=== PATIENT | male | born 2005 | race African-American/Black ===

== ENCOUNTER 2024-10-11 02:46 | Emergency (ER) | payer BC, SELFPAY ==
[2024-10-11 02:51] VITALS: BP 133/72; PULSE 92; RESP 16; TEMP 36.7; O2SAT 100
--- NOTE | 2024-10-11 03:15 | ED.NAVMDI ---
HPI - Nausea/Vomiting/Diarrhea General Chief complaint: Nausea/Vomiting/Diarrhea Stated complaint: i think i have food poisoning Time Seen by Provider: 10/11/24 03:12 Source: patient Mode of arrival: ambulatory Limitations: no limitations History of Present Illness HPI Narrative: Patient presents with concern for food poisoning. He had chicken wings earlier in the day and then developed nausea, vomiting, and diarrhea. He states he feels dehydrated. He is having cramping in his abdomen but also reporting that this is everywhere including his back. Vomiting appears to have let up as his last episode was reported at 11:00 p.m.. He states all episodes have been nonbloody and nonbilious. He reports this body feels sore and tight this is having have trouble sleeping. Lives in a dorm but denies any sick contacts/roommates and no one else that he knows ate the same food. No recent travel or antibiotics. Denies fevers but having chills. No prior abdominal surgeries. No underlying GI issues and has never had to see or follow with a marine pipefitter. Related Data Allergies Allergy/AdvReac Type Severity Reaction Status Date / Time No Known Allergies Allergy Verified 10/11/24 02[facility] Social History Social History Living arrangements: dorm student housing Occupation/Education: student Exam Narrative: GENERAL: Well-appearing, well-nourished, and in no acute distress. HEAD: Normocephalic, atraumatic. EYES: Non injected, non icteric ENT: Nares clear, no rhinorrhea or epistaxis. Moist mucous membranes NECK: Supple. CHEST: Speaking in full sentences. No respiratory distress. HEART: Regular rate and rhythm. . ABDOMEN: Soft, nondistended. Well developed abdomional muscles. No tenderness palpation throughout. No rigidity or guarding. Not peritoneal. EXTREMITIES: Normal range of motion. No lower extremity edema. SKIN: Warm, dry, no rash. NEURO: No focal deficits. Alert and oriented x3. PSYCH: Normal mood and affect. Course Vital Signs Vital signs: Vital Signs Temperature 98.1 F 10/11/24 02:51 Pulse Rate 92 10/11/24 02:51 Respiratory Rate 16 10/11/24 02:51 Blood Pressure 133/72 10/11/24 02:51 Pulse Oximetry 100 10/11/24 02:51 Oxygen Delivery Room Air 10/11/24 02:51 Temperature 98.1 F 10/11/24 02:51 Pulse Rate 92 10/11/24 02:51 Respiratory Rate 16 10/11/24 02:51 Blood Pressure 133/72 10/11/24 02:51 Pulse Oximetry 100 10/11/24 02:51 Oxygen Delivery Room Air 10/11/24 02:51 MDM - Nausea/Vomiting/Diarrhea MDM Narrative Medical decision making narrative: Patient presents with concern for food poisoning. He developed nausea, vomiting, and diarrhea after having chicken wings earlier in the day. He states he feels dehydrated and is cramping everywhere with myalgias and feeling that his body is tight and this is making it difficult to breathe. Last episode of emesis what it was at approximately 11:00 p.m. In the emergency department they are afebrile with vital signs within normal limits. Mild leukocytosis. Mildly elevated CPK but not to a degree to suggest rhabdomyolysis. Will attempt a fluid challenge. Mild hypomagnesemia; oral repletion ordered. Only trace ketonuria. Viral swab negative. Patient reassessed and states he is feeling better in general as he has not thrown up anymore and no longer feels nauseated. He does still have body aches, requesting something for pain and this is ordered. Otherwise feels comfortable with and ready to be discharged. Provided prescriptions for [id number] analgesics medications as well as short course of ODT ondansetron. Provided referral/contact information for primary care physician if patient does not have 1. Provided work/school note. Discharged home in stable condition. Differential Diagnosis Differential diagnosis: Likely food poisoning, gastroenteritis, drug-induced nausea and vomiting, dehydration and other (Acute viral syndrome) Lab Data Attestation: I reviewed the patient's lab results. 10/11/24 03:41 10/11/24 03:41 Labs: Lab Results 10/11/24 10/11/24 Range/Units 03:41 05:34 WBC 11.1 H (4.5-10.0) K/mm3 RBC 5.94 (4.6-6.20) M/mm3 Hgb 17.5 (14.0-18.0) g/dL Hct 52.1 H (42.0-52.0) % MCV 87.7 (80-100) fl MCH 29.5 (26-34) pg MCHC 33.6 (32-36) g/dl RDW 13.1 (11.5-14.5) % Plt Count 263 (150-375) k/mm3 MPV 9.4 (7.4-10.4) fl Immature Gran % (Auto) 0.4 (0-0.5) % Neut % (Auto) 92.0 H (45.5-73.1) % Lymph % (Auto) 3.7 L (18.3-44.2) % [place] % (Auto) 3.6 (2.6-8.5) % Eos % (Auto) 0.1 (0-4.4) % Baso % (Auto) 0.2 (0.2-1.2) % Lymph # (Auto) 0.41 L (0.9-3.2) K/mm3 [place] # (Auto) 0.4 (0.1-0.6) K/mm3 Eos # (Auto) 0.0 (0-0.3) K/mm3 Baso # (Auto) 0.0 (0.0-0.1) K/mm3 Abs Immat Gran (auto) 0.04 H (0.00-0.031) K/mm3 Absolute Neuts (auto) 10.2 H (1.3-6.7) K/mm3 Absolute Nucleated RBC 0.000 (0.0-0.012) K/mm3 Nucleated RBC % 0.0 (0.0-0.2) % Sodium 142 (137-145) mmol/L Potassium 3.9 (3.4-5.0) mmol/L Chloride 102 (98-107) mmol/L Carbon Dioxide 26 (22-30) mmol/L Anion Gap 14 H (4-12) mmol/L BUN 17 (9-20) mg/dL Creatinine 1.21 (0.7-1.3) mg/dL Estim Creat Clear Calc 93 ml/min Estimated GFR > 60 (59 - ) Glucose 114 H (65-110) mg/dL Calcium 9.5 (8.4-10.2) mg/dL Magnesium 1.5 L (1.6-2.3) mg/dL Total Bilirubin 1.5 H (0.2-1.3) mg/dL AST 47 (17-59) U/L ALT 48 (6-50) U/L Alkaline Phosphatase 87 (38-126) U/L Total Creatine Kinase 505 H (55-170) U/L Total Protein 8.0 (6.3-8.2) g/dL Albumin 5.1 (3.5-5.1) g/dL Lipase 58 (23-300) U/L Urine Color Yellow (Yellow) Urine Appearance Clear (Clear) Urine pH 6.0 (5.0-9.0) Ur Specific [place] 1.033 (1.001-1.035) Urine Protein Trace (Negative) mg/dL Urine Glucose (UA) Negative (Negative) mg/dL Urine Ketones Trace H (Negative) mg/dL Ur Blood (Man) Negative (Negative) Urine Nitrate Negative (Negative) Urine Bilirubin Negative (Negative) Urine Urobilinogen 1.0 (<2.0) mg/dL Leukocyte Esterase Rfl Negative (Negative) TAMMY/UL Urine RBC 0-2 (0-2) /hpf Urine WBC 0-5 (0-3) /hpf Ur Squamous Epith Cells None seen (Few) /hpf Urine Bacteria None seen /hpf Urine Casts 0-2 Influenza A (RT-PCR) Negative (Negative) Influenza B (RT-PCR) Negative (Negative) SARS-CoV-2 RNA (RT-PCR) Negative (Negative) Discharge Plan Discharge Clinical Impression: Leukocytosis, Abnormal CPK, Hypomagnesemia, Gastroenteritis, Myalgia Patient Disposition: Home, Self-Care Condition: Stable Instructions: Antibiotic Form, Gastroenteritis (DC), Acute Nausea and Vomiting (DC), Hypomagnesemia (ED) Additional Instructions: Acetaminophen/Tylenol (maximum 4000 mg per day) is safe to take with NSAIDs (ibuprofen/Motrin) for pain relief. You can use the oral disintegrating tablets of ondansetron/Zofran if nausea and vomiting persist or happen again. Your magnesium was a little low. Given magnesium supplementation can cause diarrhea, can consider food sources to replete. Examples include salmon, tofu, laura seeds, bananas, black beans, spinach, cashews/cashew butter, oats, peanuts, potatoes with skins on, brown rice, soy milk, quinoa, kidney beans, whole wheat bread, avocado, raisins, pumpkin seeds, beet greens, dried prunes, white beans, almonds, chickpeas, etc. Follow-up with primary care physician. If you do not have 1 the name of the doctors listed below. Return to the emergency department with any new or worsening or uncontrolled/unmanaged symptoms. Rest and maintain your hydration with gentle sips of water throughout the day. You can also use Pedialyte or Gatorade (does not have to be name brand). If drinking juice, you may choose to dilute it given many of them contain a lot of sugar. Avoid milk for the next several days as sometimes that can be irritating to the stomach. Eat bland foods (think bananas, rice, applesauce, toast, etc.) Patient Language: Turkish Prescriptions: New acetaminophen 500 mg capsule 1,000 mg PO Q6H PRN (Reason: pain) Qty: 30 0RF ibuprofen 600 mg tablet 600 mg PO TID PRN (Reason: pain) Qty: 30 0RF ondansetron 4 mg tablet,disintegrating 4 mg PO Q8H PRN (Reason: nausea and vomiting) Qty: 7 0RF Follow-up/Referrals: gO Greene MD [Physician] - (Family practice/primary care physician) PHYSICIAN,APPLICATION INFRASTRUCTURE ENGINEER [Primary Care Provider] - Stand Alone Forms: Work/School Release IP Time of Disposition: 06:34
[2024-10-11] MEDS: ONDANSETRON HCL ODT 4 MG TABLET PO (03:21)
--- OUTSIDE RECORDS SUMMARY | 2024-10-11 03:30 | XMS_ITS | Clinical Summary ---
Author Organization [facility] [employer] Address [address] [place] [address] Care Team Providers Care Chocolate Maker Name Role Phone Unavailable Primary Care Provider Unavailabl e Source Comments [facility],non-owned Affiliates and Associated Physician Practices is amultiple site organization consisting of ambulatory clinics and hospital sitesin [place], [place], [place] and [place]. This disclosure is being madepursuant to the Care Everywhere program and may not contain all information available regarding this patient. Last updated 18.[facility] [employer] Allergies No known active allergies Medications * Be aware that medications may not be up to date on this document. Alwaysverify current medications with the patient. Medication Sig Dispensed Refills Start Date End Date Status griseofulvin ultramicrosize (DIAZ-PEG) 250 MG tablet TK 2 TS PO Q 12 H 1 08/31/2018 Active Family History Medical History Relation Name Comments Cardiomyopathy Neg Hx Congenital Heart defect Neg Hx Sudd. <30 Neg Hx Social History Tobacco Use Types Packs/Day Years Used Date Smoking Tobacco: Never Smokeless Tobacco: Never Sex and Gender Information Value Date Recorded Sex Assigned at Not on file Gender Identity Not on file Sexual Orientation Not on file Last Filed Vital Signs Vital Sign Reading Time Taken Comments Blood Pressure 120/64 09/25/2018 11:31 AM SR. VENDOR MANAGEMENT ASSOCIATE Pulse 80 09/25/2018 11:31 AM SR. VENDOR MANAGEMENT ASSOCIATE Temperature - - Respiratory Rate 20 09/25/2018 11:31 AM SR. VENDOR MANAGEMENT ASSOCIATE Oxygen Saturation 100% 09/25/2018 11:31 AM SR. VENDOR MANAGEMENT ASSOCIATE Inhaled Oxygen Concentration - - Weight 65.8 kg (145 lb 1 oz) 09/25/2018 11:31 AM SR. VENDOR MANAGEMENT ASSOCIATE Height 170.8 cm (5' 7.24 ) 09/25/2018 11:[address] Body Mass Index 22.56 09/25/2018 11:31 AM SR. VENDOR MANAGEMENT ASSOCIATE Plan of Treatment Health Maintenance Due Date Last Done Comments HIV SCREENING 2019 HPV VACCINE (1 - Male 3-dose series) 2019 MENINGOCOCCAL (Group B) VACC INE SHARED DECISION-MAKING (1 of 2 - Standard) 2020 HEPATITIS C SCREENING 08/26/2022 DTAP/TDAP/TD VACCINES (1 - Tdap) 2023 HEPATITIS B VACCINE (1 of 3 - 19+ 3-dose series) 2023 COVID-19 VACCINE (1 - 2023-2 5 season) 2024 INFLUENZA VACCINE (#1) 2024 DEPRESSION SCREENING 07/28/2024 ZOSTER VACCINE (1 of 2) 2054 HIB VACCINE Aged Out No longer eligi ble based on patient's age to complete this topic MENINGOCOCCAL GROUPS A/C/Y/W VACCINE Aged Out No longer eligible b ased on patient's age to complete this topic PNEUMOCOCCAL VACCINE Aged Out No long er eligible based on patient's age to complete this topic
--- OUTSIDE RECORDS SUMMARY | 2024-10-11 03:30 | XMS_ITS | Patient Health Summary ---
Author Organization [facility] Address [address] [place] [address] Care Team Providers Care Upsetter Helper Name Role Phone Unavailable Primary Care Provider Unavailabl e Note from [facility],non-owned Affiliates and Associated Physician Practices is amultiple site organization consisting of ambulatory clinics and hospital sitesin [place], [place], [place] and [place]. This disclosure is being madepursuant to the Care Everywhere program and may not contain all information available regarding this patient. Last updated 18.[facility] Allergies No known active allergies Medications * Be aware that medications may not be up to date on this document. Alwaysverify current medications with the patient. * griseofulvin ultramicrosize (DIAZ-PEG) 250 MG tablet(Started 08/31/2018) TK 2 TS PO Q 12 H 1 refill left Social History Tobacco Use Types Packs/Day Years Used Date Smoking Tobacco: Never Smokeless Tobacco: Never Sex and Gender Information Value Date Recorded Sex Assigned at Not on file Gender Identity Not on file Sexual Orientation Not on file Last Filed Vital Signs Vital Sign Reading Time Taken Comments Blood Pressure 120/64 09/25/2018 11:31 AM PRESCHOOL DISABILITY TEACHER Pulse 80 09/25/2018 11:31 AM PRESCHOOL DISABILITY TEACHER Temperature - - Respiratory Rate 20 09/25/2018 11:31 AM PRESCHOOL DISABILITY TEACHER Oxygen Saturation 100% 09/25/2018 11:31 AM PRESCHOOL DISABILITY TEACHER Inhaled Oxygen Concentration - - Weight 65.8 kg (145 lb 1 oz) 09/25/2018 11:31 AM PRESCHOOL DISABILITY TEACHER Height 170.8 cm (5' 7.24 ) 09/25/2018 11:31 AM C Body Mass Index 22.56 09/25/2018 11:31 AM PRESCHOOL DISABILITY TEACHER Procedures * STRESS TEST TREADMILL (NO IMAGING)(Performed 11/12/2018) Performed for Chest pain, unspecified type * ECHO CONSULT - PEDIATRIC(Performed 09/25/2018) Performed for Chest pain, unspecified type * EKG 15-LEAD(Performed 09/25/2018) Performed for Chest pain, unspecified type Results * STRESS TEST TREADMILL (NO IMAGING) (11/12/2018 12:31 PM CDT) Pathologist [facility] Stress Test Summary For full formatted report, please see the report link in the order. Acquisition Time: 2018-11-12 12:31:35 Total Exercise Time: 00:09:52 Test Indications: Chest Discomfort Medications: Protocol: SCOOTER Max HR: 193 BPM 93% of Pred: 206 BPM Max BP: 194/097 mmHG Max Work Load: 11.5 METS Reason for Termination: fatigue,leg Resting ECG: Normal Functional Capacity: Normal HR Response to Exercise: Normal Overall HR Response To Exercise BP Resoonse to Exercise: Resting Hypertension with Appropriate Response Chest Pain: No Chest Pain Arrhythmias: No Arrhythmias ST Changes: no Overall Impression: Diagnosis: interpretation EPIC elevated BP secondary to inaaprpaite BP cuff. BP cuff was changed after stage one of exercise to an appropaite size. BP reading were normal thereafter. Confirmed by MD ALIZA, CRISTINA ([id number]) on 11/12/2018 2:09:23 PM Attending Physician: Amarilis Abrams Referred By: ISHA AMATO Overread By: CRISTINA ABRAMS MD [facility] STRESS 11/12/2018 12:3 1 PM CDT 11/12/2018 2:09 PM CDT Og Shepherd MD CARDIAC SERVICES ORD ERABLES [facility] STRESS * ECHO CONSULT - PEDIATRIC (09/25/2018 11:48 AM PRESCHOOL DISABILITY TEACHER) 09/25/2018 11:4 8 AM PRESCHOOL DISABILITY TEACHER Narrative Procedure Note Stepan Ruiz MD - 09/25/2018 [place] [address] Fax Non-Congenital Transthoracic Report Pat.Name: KIAH DOLAN Pat.ID: [id number] .Date: 09/25/2018 Refer.MD: MILAGROS FOLEY Exam Time: 11:48:00 AM Study Type:Non-Congenital TTE Height: 170.8cm Weight: 65.8kg BSA: 1.77 m2 Age: 2 2005,13Y Sex: MALE BP: 120/64 Sonogrphr: Vianey Lincoln RDCS Pat. Stat.:Outpatient CPT - 4: 86486 Reason for Study: chest pain History / Clinical: chest pain Procedures: 2D Non-congenital, Doppler Complete, Color Flow Race: U Visit ID: [id number] SUMMARY: Impression: Normal intracardiac anatomy and normal biventricular systolic function. No pathologic valve stenosis or regurgitation. Findings: Anatomic Relationships: Abdominal situs solitus. There is levocardia. Atrial situs solitus. The AV alignment is concordant. The ventricular looping is D-looped. The VA connection is concordant. The arterial relationships are normal. Systemic Veins: Normal right SVC. Normal IVC. Pulmonary Veins: Pulmonary veins drain normally to LA. Right Atrium: The right atrial size is normal. Left Atrium: The left atrial size is normal. Atrial Septum: Intact atrial septum. Left to right atrial shunt, none. Tricuspid Valve: The tricuspid valve is structurally normal. There is no stenosis. There is physiologic regurgitation present. Mitral Valve: The mitral valve is structurally normal. There is no stenosis. There is no regurgitation present. Right Ventricle: The cavity size is normal. The wall thickness is normal. The systolic function is normal. RV Outflow Tract: The outflow tract is normal. Left Ventricle: The cavity size is normal. The wall thickness is normal. The systolic function is normal. LV Outflow Tract: The outflow tract is normal. Ventricular Septum: The septal motion is normal. There is no defect with no shunting. Pulmonary Valve: The pulmonic valve is structurally normal. There is no stenosis. There is physiologic regurgitation present. Aortic Valve: The aortic valve is structurally normal. There is no stenosis. There is no regurgitation present. Pulmonary Artery: The MPA is normal. The LPA is normal. The RPA is normal. Aorta: The aortic root is normal. The aortic arch is patent. The arch sidedness is left aortic arch. PDA: No PDA with no shunting. Coronary Arteries: Normal coronary artery origins, normal colorflow. Pericardium: No pericardial effusion. MEASUREMENTS: DOPPLER Mitral Valve MV pkE 0.9 m/s (zsc -0.1) MV E/A 2.2 (zsc -0.2) MV pkA 0.4 m/s (zsc -0.1) MV DeTm 185.6 ms (zsc 0.8) 2D Aortic Valve AV allie 17.8 mm (zsc -1.6) Aorta AAo 23.4 mm (zsc -0.6) MMODE Ventricles LVIDd 49.7 mm (zsc 0) LVPWs 11.9 mm (zsc -1.7) LVIDs 30.3 mm (zsc -0.6) LV%fs 39.1 % IVSd 8.1 mm (zsc -1) LV EF 69.3 % IVSs 9.1 mm (zsc -2.2) LV Mass 104.7 g (zsc -2.1) LVPWd 5 mm (zsc -3.2) AO / LA AoR 30.8 mm LAIDs 32.5 mm Signed 09/25/2018 01:16 PM Og Shepherd MD Og Shepherd MD ECHO ORDERABLES [facility] CARDIAC SERVICES [address] [place] [address] * EKG 15-LEAD (09/25/2018 11:04 AM PRESCHOOL DISABILITY TEACHER) Ventricular Rate 87 BPM CG MUSE Atrial Rate 87 BPM CG MUSE P-R Interval 136 ms CG MUSE QRS Duration ms 84 ms CG MUSE Q-T Interval ms 334 ms CG MUSE QTC Calculation (Bezet) 401 ms CG MUSE Calculated P [place] 49 degrees CG MUSE Calculated R [place] 85 degrees CG MUSE Calculated T [place] 35 degrees CG MUSE Interpretation EKG * Pediatric ECG Analysis * Normal sinus rhythm Right ventricular hypertrophy No previous ECGs available Confirmed by MD MILAGROS, OG ([id number]) on 09/25/2018 4:28:12 PM CG MUSE 09/25/2018 11:0 4 AM PRESCHOOL DISABILITY TEACHER 09/25/2018 4:28 PM PRESCHOOL DISABILITY TEACHER Og Shepherd MD ECG ORDERABLES CG MUSE
--- OUTSIDE RECORDS SUMMARY | 2024-10-11 03:30 | XMS_ITS | Referral Summary ---
Author Organization [facility] Address [address] [place] [address] Care Team Providers Care Sales Account Manager Name Role Phone Unavailable Primary Care Provider Unavailabl e Source Comments [facility],non-owned Affiliates and Associated Physician Practices is amultiple site organization consisting of ambulatory clinics and hospital sitesin [place], [place] and [place]. This disclosure is being madepursuant to the Care Everywhere program and may not contain all information available regarding this patient. Last updated 18.[facility] Allergies No known active allergies Medications * Be aware that medications may not be up to date on this document. Alwaysverify current medications with the patient. Medication Sig Dispensed Refills Start Date End Date Status griseofulvin ultramicrosize (DIAZ-PEG) 250 MG tablet TK 2 TS PO Q 12 H 1 08/31/2018 Active Social History Tobacco Use Types Packs/Day Years Used Date Smoking Tobacco: Never Smokeless Tobacco: Never Sex and Gender Information Value Date Recorded Sex Assigned at Not on file Gender Identity Not on file Sexual Orientation Not on file Last Filed Vital Signs Vital Sign Reading Time Taken Comments Blood Pressure 120/64 09/25/2018 11:31 AM BURN TABLE OPERATOR Pulse 80 09/25/2018 11:31 AM BURN TABLE OPERATOR Temperature - - Respiratory Rate 20 09/25/2018 11:31 AM BURN TABLE OPERATOR Oxygen Saturation 100% 09/25/2018 11:31 AM BURN TABLE OPERATOR Inhaled Oxygen Concentration - - Weight 65.8 kg (145 lb 1 oz) 09/25/2018 11:31 AM BURN TABLE OPERATOR Height 170.8 cm (5' 7.24 ) 09/25/2018 11:31 AM Pina ESPINO Body Mass Index 22.56 09/25/2018 11:31 AM BURN TABLE OPERATOR Plan of Treatment Not on file
[2024-10-11 03:53] LABS: Basophils Percent Auto 0.2 % (0.2-1.2); Eosinophils Percent Auto 0.1 % (0-4.4); Hematocrit 52.1 % (42.0-52.0); Hemoglobin 17.5 g/dL (14.0-18.0); Immature Granulocyte Absolute 0.04 K/mm3 (0.00-0.031); Immature Granulocyte Percent A 0.4 % (0-0.5); Lymphocytes Absolute Auto 0.41 K/mm3 (0.9-3.2); Lymphocytes Percent Auto 3.7 % (18.3-44.2); Mean Corpuscular HGB Conc 33.6 g/dl (32-36); Mean Corpuscular Hemoglobin 29.5 pg (26-34); Mean Corpuscular Volume 87.7 fl (80-100); Mean Platelet Volume 9.4 fl (7.4-10.4); Monocytes Absolute Auto 0.4 K/mm3 (0.1-0.6); Monocytes Percent Auto 3.6 % (2.6-8.5); Neutrophils Absolute Auto 10.2 K/mm3 (1.3-6.7); Platelet Count Result 263 k/mm3 (150-375); Red Blood Count 5.94 M/mm3 (4.6-6.20); Red Cell Distribution Width 13.1 % (11.5-14.5); White Blood Count 11.1 K/mm3 (4.5-10.0)
[2024-10-11 03:59] LABS: Add Urine Microscopic? YES; Appearance Urine Clear (Clear); Bacteria Urine None Seen /hpf; Bilirubin Urine Negative (Negative); Blood Urine Negative (Negative); Color Urine Yellow (Yellow); Glucose Urine UA Negative (Negative); Ketones Urine Trace mg/dL (Negative); Leukocyte Esterase Ur Negative LEU/UL (Negative); Nitrate Urine Negative (Negative); Non Pathogenic Casts 0-2; Protein Urine Trace mg/dL (Negative); RBC Urine 0-2 /hpf (0-2); Specific Grav Ur 1.033 (1.001-1.035); Squamous Epithelial Cell Urine None Seen /hpf (Few); WBC Urine 0-5 /hpf (0-3)
[2024-10-11 04:03] LABS: Alanine Aminotransferase 48 U/L (6-50); Albumin Level 5.1 g/dL (3.5-5.1); Alkaline Phosphatase 87 U/L (38-126); Anion Gap 14 mmol/L (4-12); Aspartate Amino Transferase 47 U/L (17-59); Bilirubin,Total 1.5 mg/dL (0.2-1.3); Blood Urea Nitrogen 17 mg/dL (9-20); Calcium 9.5 mg/dL (8.4-10.2); Carbon Dioxide 26 mmol/L (22-30); Chloride 102 mmol/L (98-107); Creatine Kinase 505 U/L (55-170); Estimated CRCL calculation 93 ml/min; Estimated Glomerular Filt Rate > 60; Glucose 114 mg/dL (65-110); Lipase 58 U/L (23-300); Magnesium 1.5 mg/dL (1.6-2.3); Potassium 3.9 mmol/L (3.4-5.0); Sodium 142 mmol/L (137-145)
[2024-10-11] MEDS: FAMOTIDINE 10 MG TABLET PO (05:59)
[2024-10-11] MEDS: MAGNESIUM OXIDE 400 MG TABLET PO (05:59)
[2024-10-11 06:19] LABS: Influenza A QL RT-PCR Negative (Negative); Influenza B QL RT-PCR Negative (Negative); SARS-CoV-2 RNA PCR Negative (Negative)
== END 2024-10-11 06:57 | disposition home or self-care (01) ==
PROVIDERS: Emergency Provider Student in an Organized Health Care Education/Training Program
DX: K52.9 Noninfective gastroenteritis and colitis, unspecified (principal); M79.10 Myalgia, unspecified site; E83.42 Hypomagnesemia; D72.829 Elevated white blood cell count, unspecified; R74.8 Abnormal levels of other serum enzymes; Z20.822 Contact with and (suspected) exposure to COVID-19
CPT/HCPCS: 36415; 80053; 81001; 82550; 83690; 83735; 85025; 87636; 96372; 99283; A9270